=== PATIENT | male | born 1980 | race Caucasian/White ===

== ENCOUNTER 2017-10-31 20:47 | Emergency (ER) | payer OTHER ==
[2017-10-31] MEDS ORDERED: Lidocaine 1% 20 ML MDV ONE (21:47)
[2017-10-31] MEDS ORDERED: Bacitracin Oint 1 GM U/D Packet ONE (21:47)
[2017-10-31] MEDS ORDERED: Ketorolac 60 MG/2 ML SDV ONE (21:47)
[2017-10-31] MEDS ORDERED: Acetaminophen/HYDROcodone 325-5 MG Tab ONE (22:30)
[2017-10-31] MEDS ORDERED: Cephalexin 500 MG Cap ONE (22:30)
[2017-10-31] MEDS ORDERED: Diphtheria,Pertussis(Acell),Tetanus Vaccine 0.5 ML Syringe ONE (22:30)
--- NOTE | 2017-11-01 17:53 | CR ---
EXAM DATE: 10/31/17 PATIENT'S AGE: 37 Patient: VERONIQUE MÉNDEZ Facility: [place], [place] Site . Site : 1980 Study: XRay Extremity Right THUMB-10/31/2017 9:33:39 PM Ordering Physician: Rl MONTAÑO Final Report: INDICATION: Thumb injury. COMPARISON: None. FINDINGS/IMPRESSION: Right thumb, 3 views. Acute transverse fracture through the distal phalanx of the thumb and at the junction of the base and shaft, with minimal distraction of the fracture fragments and slight anterior angulation of the distal fragment. Overlying soft tissue swelling. No dislocation. Dictated by Romero Acosta MD @ 10/31/2017 9:50:04 PM Dictated by: Romero Acosta MD @ 10/31/2017 21:50:16 (Electronic Signature) Report Signed by Proxy. DEXTER
== END 2017-10-31 22:45 | disposition home or self-care (01) ==
LOC: MW.ED 20:47
DX: S62.521B Displaced fracture of distal phalanx of right thumb, initial encounter for open fracture (principal); Z23 Encounter for immunization; W23.0XXA Caught, crushed, jammed, or pinched between moving objects, initial encounter
CPT/HCPCS: 73140; 90471; 90715; 96372; 99283; A9270; J1885

== ENCOUNTER 2022-07-08 23:05 | Emergency (ER) | payer SELFPAY | END 2022-07-08 23:44 | LOC: MW.ED 23:05 | DX: I10 Essential (primary) hypertension (principal); E11.9 Type 2 diabetes mellitus without complications | CPT/HCPCS: 82947; 93005; 93010; 99283 ==

== ENCOUNTER 2023-10-25 09:37 | Emergency (ER) | payer OTHER ==
[2023-10-25] MEDS: Acetaminophen 500 MG Tab PO ONE (10:09)
== END 2023-10-25 10:55 | disposition home or self-care (01) ==
LOC: MW.ED 09:37
DX: S93.401A Sprain of unspecified ligament of right ankle, initial encounter (principal); E11.9 Type 2 diabetes mellitus without complications; Z75.8 Other problems related to medical facilities and other health care; X50.1XXA Overexertion from prolonged static or awkward postures, initial encounter
CPT/HCPCS: 73610; 99283; A9270

== ENCOUNTER 2023-10-31 09:58 | Emergency (ER) | payer OTHER | END 2023-10-31 11:22 | disposition home or self-care (01) | LOC: MW.ED 09:58 | DX: S90.01XA Contusion of right ankle, initial encounter (principal); E11.9 Type 2 diabetes mellitus without complications; Z75.8 Other problems related to medical facilities and other health care; Z79.899 Other long term (current) drug therapy; X50.1XXA Overexertion from prolonged static or awkward postures, initial encounter | CPT/HCPCS: 73610-26-RT; 73610-RT; 99283 ==